=== PATIENT | male | born 1970 | race Caucasian/White ===

== ENCOUNTER 2017-01-04 20:41 | Emergency (ER) | payer MEDICARE, MEDICAID ==
[2017-01-04] MEDS ORDERED: Ibuprofen 800 MG TAB ONE (21:01)
[2017-01-04] MEDS ORDERED: Adacel (T-DAP) 0.5 ML VIAL ONE (21:01)
[2017-01-04] MEDS ORDERED: Bacitracin Zinc 1 Packet ONE (21:08)
== END 2017-01-04 21:25 | disposition home or self-care (01) ==
LOC: ERS 20:41
DX: S61.001A Unspecified open wound of right thumb without damage to nail, initial encounter (principal); E78.5 Hyperlipidemia, unspecified; I10 Essential (primary) hypertension; M10.9 Gout, unspecified; W22.8XXA Striking against or struck by other objects, initial encounter
CPT/HCPCS: 90471; 90715

== ENCOUNTER 2017-07-09 14:00 | Outpatient (CLI) | payer OTHER | END 2017-07-09 14:01 | disposition home or self-care (01) | LOC: DTY/OP 14:00 | PROVIDERS: ATTEND Family Medicine | DX: R63.5 Abnormal weight gain (principal); Z68.38 Body mass index [BMI] 38.0-38.9, adult | CPT/HCPCS: 97802 ==

== ENCOUNTER 2017-09-23 22:18 | Emergency (ER) | payer MEDICARE, MEDICAID ==
--- NOTE | 2017-09-23 23:24 | RAD ---
RIGHT SHOULDER THREE VIEWS: 09/23/17 HISTORY: Injury, right shoulder pain. FINDINGS/IMPRESSION: No acute fracture or dislocation is identified. POS: [facility]
== END 2017-09-23 23:59 | disposition home or self-care (01) ==
LOC: ERS 22:18
DX: M25.511 Pain in right shoulder (principal); M10.9 Gout, unspecified; F84.0 Autistic disorder; I10 Essential (primary) hypertension; E78.5 Hyperlipidemia, unspecified

== ENCOUNTER 2022-09-19 09:42 | Outpatient (CLI) | payer MEDICARE, MEDICAID | END 2022-09-19 09:43 | disposition home or self-care (01) | LOC: DTY/OP 09:42 | PROVIDERS: ATTEND Student in an Organized Health Care Education/Training Program | DX: K90.0 Celiac disease (principal) | CPT/HCPCS: 97802 ==

== ENCOUNTER 2023-06-26 08:07 | Outpatient (CLI) | payer MEDICARE, MEDICAID | END 2023-06-26 08:08 | disposition home or self-care (01) | LOC: LABBT 08:07 | PROVIDERS: ATTEND Surgery | DX: Z01.810 Encounter for preprocedural cardiovascular examination (principal); C20 Malignant neoplasm of rectum; K62.89 Other specified diseases of anus and rectum | CPT/HCPCS: 78815; 93005; 93010; A9552 ==

== ENCOUNTER 2023-06-26 11:00 | Outpatient (CLI) | payer MEDICARE, MEDICAID | END 2023-06-26 11:01 | disposition home or self-care (01) | LOC: PET 11:00 | PROVIDERS: ATTEND Radiology Radiation Oncology | DX: C20 Malignant neoplasm of rectum (principal); K62.89 Other specified diseases of anus and rectum | CPT/HCPCS: 78815; A9552 ==

== ENCOUNTER 2023-06-30 09:03 | Day surgery (SDC) | payer MEDICARE, MEDICAID ==
[2023-06-26 08:37] VITALS: BMI 32.9
[2023-06-30] MEDS ORDERED: EPINEPHrine 1 MG/ML VIAL ONE (10:14)
[2023-06-30] MEDS ORDERED: Bupivacaine 0.25% HCL 30 ML VIAL ONE ×2 (10:14→12:57)
[2023-06-30] MEDS ORDERED: PROPOFOL 40 ML ONE (12:27)
[2023-06-30] MEDS ORDERED: Lidocaine 1% PF 5 ML VIAL ONE (13:10)
[2023-06-30] MEDS ORDERED: fentaNYL PF 100 MCG/2 ML SYRINGE ONE (13:11)
[2023-06-30] MEDS ORDERED: CEFAZOLIN 2 GM VIAL ONE (13:23)
[2023-06-30] MEDS ORDERED: Sodium Chloride 0.9% 100 ML ONE (13:23)
[2023-06-30] MEDS ORDERED: Famotidine/PF 20 mg/2ml Vial ONE (13:26)
[2023-06-30] MEDS ORDERED: Rocuronium Bromide 50 MG/5 ML VIAL ONE (13:26)
[2023-06-30] MEDS ORDERED: Dexamethasone 4 mg/ml Vial ONE (13:43)
[2023-06-30] MEDS ORDERED: Ondansetron PF 4 MG/2 ML Vial ONE (13:56)
== END 2023-06-30 16:00 | disposition home or self-care (01) ==
LOC: SDC 09:03
PROVIDERS: ATTEND Surgery
PROC: 0JH60WZ Insertion of Totally Implantable Vascular Access Device into Chest Subcutaneous Tissue and Fascia, Open Approach (ICD-10-PCS; principal; 2023-06-30)
DX: C20 Malignant neoplasm of rectum (principal); E78.00 Pure hypercholesterolemia, unspecified; I10 Essential (primary) hypertension; M10.9 Gout, unspecified; Z88.8 Allergy status to other drugs, medicaments and biological substances; Z88.5 Allergy status to narcotic agent
CPT/HCPCS: 36561; 71045; J0171; C1788; J0665; J1100; J1642; J2405; J2704; J3490; S0028

== ENCOUNTER 2023-12-11 13:16 | Outpatient (CLI) | payer MEDICARE, MEDICAID | END 2023-12-11 13:17 | disposition home or self-care (01) | LOC: BICRAD 13:16 | PROVIDERS: ATTEND Internal Medicine Hematology & Oncology | DX: C20 Malignant neoplasm of rectum (principal); D50.0 Iron deficiency anemia secondary to blood loss (chronic); R30.0 Dysuria | CPT/HCPCS: 74018 ==

== ENCOUNTER 2024-02-20 10:43 | Emergency (ER) | payer MEDICARE, MEDICAID ==
[2024-02-20 12:03] LABS: #Basophils Less than 0.03 10x3/uL (0.0-0.2); %Basophils 0.3 % (0.0-1.0); %Eosinophils 0.6 % (0.0-10.0); %Monocytes 9.4 % (0.0-10.0); %Neutrophils 82.1 % (42.0-75.0); Hematocrit 22.2 % (42.0-52.0); Hemoglobin 6.9 g/dL (14.0-18.0); Mean Corpuscular HGB CONC 31.1 g/dL (32.0-36.0); Mean Corpuscular Hemoglobin 29.1 pg (27.0-31.0); Mean Corpuscular Volume 93.7 fL (78.0-98.0); Mean Platelet Volume 9.1 fL (7.4-10.4); Platelet Count 282 10x3/uL (130-400); Red Blood Cell (RBC) Count 2.37 mill/uL (4.70-6.10)
[2024-02-20 12:25] LABS: ALT (SGPT) 14 U/L (8-55); AST (SGOT) 16 U/L (5-34); Albumin 2.6 g/dL (3.5-5.0); Alkaline Phosphatase 106 U/L (40-110); Anion Gap 12 mmol/L (10-20); BUN (Urea Nitrogen) 7 mg/dL (8.4-25.7); Bilirubin, Total 0.1 mg/dL (0.2-1.2); Calc. Creatinine Clearance 0 mL/min (70-130); Calcium 8.2 mg/dL (7.8-10.44); Carbon Dioxide 21 mmol/L (22-29); Chloride 108 mmol/L (98-107); Estimated GFR 120; Globulin 3.8 g/dL (2.4-3.5); Glucose 103 mg/dL (70-105); Potassium 3.4 mmol/L (3.5-5.1); Protein, Total 6.4 g/dL (6.0-8.3); Sodium 138 mmol/L (136-145)
== END 2024-02-20 16:59 | disposition home or self-care (01) ==
LOC: ERS 10:43
DX: C20 Malignant neoplasm of rectum (principal); M79.89 Other specified soft tissue disorders; D64.9 Anemia, unspecified; E78.00 Pure hypercholesterolemia, unspecified; I10 Essential (primary) hypertension; Z79.899 Other long term (current) drug therapy; R60.0 Localized edema
CPT/HCPCS: 36430; 73630; 80053; 83880; 85025; 86850; 86900; 86901; 86920; 93971; 99284; P9016; 36415